=== PATIENT | male | born 1990 | race American Indian/Alaskan Native ===

== ENCOUNTER 2020-11-24 20:28 | Emergency (ER) | payer SELFPAY ==
[2020-11-24 21:36] VITALS: BP 122/68
--- NOTE | 2020-11-24 22:04 | Emergency Department Report ---
Chief Complaint: Upper Respiratory Infection Stated Complaint: FLU LIKE SYMPTOMS - HPI History of Present Illness: 30-year-old -[place] male presents to the emergency room planing of flulike symptoms. Patient complains of cough fever headache decreased appetite since Friday. Patient does not any diarrhea not sure if he lost taste or smell. Patient has not been checked for Covid. Patient reports has been taking [id number] medications. - Exam Vital Signs: Vital Signs 11/24/20 21:35 Temperature 100.8 F H Pulse Rate 93 H Respiratory 16 Rate Blood Pressure 122/68 [Right] O2 Sat by Pulse 99 Oximetry Physical Exam: General: Awake, appropriately interactive, no acute distress. Neck: Supple. Full range of motion intact. Cardiovascular: Normal peripheral perfusion. Pulmonary: No respiratory distress. Patient is speaking normally without use of accessory muscles. Skin: No apparent rashes or lesions. Neurological: No facial asymmetry. Speech is clear. Follows commands. Patient is alert and oriented. Musculoskeletal: Full range of motion, no crepitus. No tenderness to palpate nonerythematous no edema test appreciated. Able to bear weight and ambulate without difficulty. Distal neurovascular and motor/sensory function is intact. Psych: Cooperative. Appropriate mood and affect. MSE screening note: Focused history and physical exam performed. Due to findings the following was ordered: 30-year-old -[place]e male presents to the emergency room planing of flulike symptoms. Patient complains of cough fever headache decreased appetite since Friday. Patient does not any diarrhea not sure if he lost taste or smell. Patient has not been checked for Covid. Patient reports has been taking [id number] medications. ED Disposition for MSE Condition: Stable
== END 2020-11-24 22:30 | disposition home or self-care (01) ==
LOC: ED 20:28
DX: R05 Cough (principal); R50.9 Fever, unspecified; R51.9 Headache, unspecified
CPT/HCPCS: 99281